=== PATIENT | male | born 1975 | race African-American/Black ===

== ENCOUNTER 2020-07-04 11:48 | Outpatient (REF) | payer MEDICAID, SELFPAY ==
--- NOTE | 2020-07-04 11:57 | XR_ITS ---
EXAMINATION: CERVICAL SPINE X-RAY CLINICAL INFORMATION: Pain COMPARISON: None TECHNIQUE: 5 views of the cervical spine FINDINGS: There is mild curvature of the lower cervical and upper thoracic spine to the left. Bone alignment is otherwise normal. No fracture or dislocation is seen. Disc spaces are normal. There is minimal degenerative spondylosis at C4-C5 and C5-C6. Bilateral neural foramen are patent. Prevertebral soft tissues are normal. XR/XR lumbar spine 4V min IMPRESSION: Mild curvature of the lower cervical and upper thoracic spine to the left. Mild degenerative spondylosis at C4-C5 and C5-C6. EXAMINATION: Thoracic spine x-ray CLINICAL INFORMATION: Pain COMPARISON: None. TECHNIQUE: 2 views of the thoracic spine FINDINGS: There is mild curvature of the midthoracic spine to the right with apex at T5 and lower thoracic spine to the left with apex at T9. Bone alignment is otherwise normal. No fracture or dislocation is seen. Disc spaces are normal. Paraspinal soft tissues are normal. IMPRESSION: Mild scoliosis. EXAMINATION: Lumbar spine x-ray CLINICAL INFORMATION: Pain COMPARISON: None. TECHNIQUE: 3 views of the lumbar spine FINDINGS: There is mild curvature of the proximal lumbar spine to the right with apex at T12-L1. Bone alignment is otherwise normal. No fracture or dislocation is seen. Disc spaces are normal. IMPRESSION: Mild scoliosis.
--- NOTE | 2020-07-04 11:57 | XR_ITS ---
EXAMINATION: CERVICAL SPINE X-RAY CLINICAL INFORMATION: Pain COMPARISON: None TECHNIQUE: 5 views of the cervical spine FINDINGS: There is mild curvature of the lower cervical and upper thoracic spine to the left. Bone alignment is otherwise normal. No fracture or dislocation is seen. Disc spaces are normal. There is minimal degenerative spondylosis at C4-C5 and C5-C6. Bilateral neural foramen are patent. Prevertebral soft tissues are normal. XR/XR cervical spine 4V IMPRESSION: Mild curvature of the lower cervical and upper thoracic spine to the left. Mild degenerative spondylosis at C4-C5 and C5-C6. EXAMINATION: Thoracic spine x-ray CLINICAL INFORMATION: Pain COMPARISON: None. TECHNIQUE: 2 views of the thoracic spine FINDINGS: There is mild curvature of the midthoracic spine to the right with apex at T5 and lower thoracic spine to the left with apex at T9. Bone alignment is otherwise normal. No fracture or dislocation is seen. Disc spaces are normal. Paraspinal soft tissues are normal. IMPRESSION: Mild scoliosis. EXAMINATION: Lumbar spine x-ray CLINICAL INFORMATION: Pain COMPARISON: None. TECHNIQUE: 3 views of the lumbar spine FINDINGS: There is mild curvature of the proximal lumbar spine to the right with apex at T12-L1. Bone alignment is otherwise normal. No fracture or dislocation is seen. Disc spaces are normal. IMPRESSION: Mild scoliosis.
--- NOTE | 2020-07-04 11:58 | XR_ITS ---
EXAMINATION: BILATERAL SHOULDER X-RAY CLINICAL INFORMATION: Pain COMPARISON: None TECHNIQUE: 4 views each shoulder FINDINGS: Bone alignment is normal. No fracture or dislocation is seen. The joint spaces are normal. Soft tissues are normal. XR/XR shoulder LT min 2V IMPRESSION: Normal exam.
--- NOTE | 2020-07-04 12:00 | XR_ITS ---
EXAMINATION: BILATERAL SHOULDER X-RAY CLINICAL INFORMATION: Pain COMPARISON: None TECHNIQUE: 4 views each shoulder FINDINGS: Bone alignment is normal. No fracture or dislocation is seen. The joint spaces are normal. Soft tissues are normal. XR/XR shoulder RT min 2V IMPRESSION: Normal exam.
--- NOTE | 2020-07-04 12:01 | XR_ITS ---
EXAMINATION: CERVICAL SPINE X-RAY CLINICAL INFORMATION: Pain COMPARISON: None TECHNIQUE: 5 views of the cervical spine FINDINGS: There is mild curvature of the lower cervical and upper thoracic spine to the left. Bone alignment is otherwise normal. No fracture or dislocation is seen. Disc spaces are normal. There is minimal degenerative spondylosis at C4-C5 and C5-C6. Bilateral neural foramen are patent. Prevertebral soft tissues are normal. XR/XR thoracic spine 2V IMPRESSION: Mild curvature of the lower cervical and upper thoracic spine to the left. Mild degenerative spondylosis at C4-C5 and C5-C6. EXAMINATION: Thoracic spine x-ray CLINICAL INFORMATION: Pain COMPARISON: None. TECHNIQUE: 2 views of the thoracic spine FINDINGS: There is mild curvature of the midthoracic spine to the right with apex at T5 and lower thoracic spine to the left with apex at T9. Bone alignment is otherwise normal. No fracture or dislocation is seen. Disc spaces are normal. Paraspinal soft tissues are normal. IMPRESSION: Mild scoliosis. EXAMINATION: Lumbar spine x-ray CLINICAL INFORMATION: Pain COMPARISON: None. TECHNIQUE: 3 views of the lumbar spine FINDINGS: There is mild curvature of the proximal lumbar spine to the right with apex at T12-L1. Bone alignment is otherwise normal. No fracture or dislocation is seen. Disc spaces are normal. IMPRESSION: Mild scoliosis.
== END 2020-07-04 11:49 | disposition home or self-care (01) ==
LOC: HO.XRAY 11:48
PROVIDERS: PCP Registered Nurse; Visit Provider Registered Nurse
DX: G89.29 Other chronic pain (principal); M54.6 Pain in thoracic spine
CPT/HCPCS: 72050; 72070; 72110; 73030

== ENCOUNTER 2021-05-19 13:54 | Outpatient (REF) | payer MEDICAID, SELFPAY | END 2021-05-19 13:55 | disposition home or self-care (01) | LOC: HO.HAP 13:54 | PROVIDERS: Visit Provider Registered Nurse | DX: Z46.1 Encounter for fitting and adjustment of hearing aid (principal); H90.3 Sensorineural hearing loss, bilateral | CPT/HCPCS: V5264 ==

== ENCOUNTER 2021-05-19 15:13 | Outpatient (REF) | payer SELFPAY | END 2021-05-19 15:14 | disposition home or self-care (01) | LOC: HO.HAP 15:13 | PROVIDERS: Visit Provider Registered Nurse | DX: Z46.1 Encounter for fitting and adjustment of hearing aid (principal); H90.3 Sensorineural hearing loss, bilateral | CPT/HCPCS: V5267 ==

== ENCOUNTER 2021-07-10 13:11 | Outpatient (REF) | payer MEDICAID, SELFPAY ==
--- NOTE | ~2021-07-10 | MR_ITS ---
EXAMINATION: MR THORACIC SPINE WITHOUT AND WITH CONTRAST CLINICAL INFORMATION: Chronic mid to lower back pain. COMPARISON: Thoracic spine radiographs 07/04/2020. TECHNIQUE: Multiplanar MR imaging of the thoracic spine was performed without and with contrast. A total of 6 mL Gadavist was utilized for this examination. FINDINGS: Alignment is normal. Vertebral heights are preserved. No acute bone marrow signal changes. Intervertebral disc height and signal intensity is maintained at all levels. Annular contours are normal and there is no canal or neuroforaminal compromise. No cord compression or abnormal intramedullary signal changes. Postcontrast images reveal no abnormal intradural enhancement. Limited visualization of the intrathoracic anatomy reveals no abnormal finding. Specifically there is no paraspinal soft tissue mass or collection. MR/MR thoracic spine wo/w con IMPRESSION: Normal thoracic spine MRI.
--- NOTE | ~2021-07-10 | MR_ITS ---
MR LUMBAR SPINE WITHOUT AND WITH IV CONTRAST CLINICAL INFORMATION: 1 week of fever and bodyaches with chronic lower back and mid back pain. COMPARISON: Lumbar spine radiographs 07/04/2020. TECHNIQUE: MRI of the lumbar spine was obtained using routine sequences with and without contrast. Intravenous contrast: Gadavist 6 mL. FINDINGS: There are 5 nonrib-bearing lumbar-type vertebral bodies. Vertebral body heights are maintained. Disc volumes are preserved. The discs remain well-hydrated. T2 signal changes and enhancement along the anterior upper corners of the L4 and L5 endplates, most likely degenerative/inflammatory. No additional bone marrow edema and no additional intraosseous enhancement. No pathologic enhancement along the cauda equina nerve roots. Conus terminates at the T12-L1 level. No significant extraspinal soft tissue findings. L1-L2: Disc contour is normal. No central canal stenosis and no foraminal stenosis. L2-L3: Slight annular disc bulge and mild bilateral facet arthropathy. No central canal stenosis and no foraminal stenosis. L3-L4: Small annular disc bulge and mild bilateral facet arthropathy. No central canal stenosis and no foraminal stenosis. L4-L5: Small annular disc bulge and moderate bilateral facet arthropathy. No central canal stenosis and no foraminal stenosis. L5-S1: Small annular disc bulge and mild bilateral facet arthropathy. No central canal stenosis and no foraminal stenosis. MR/MR lumbar spine wo/w con IMPRESSION: Mild lumbar spondylosis. No severe central canal stenosis and no severe foraminal stenosis within the lumbar spine. Mild T2 signal changes and enhancement along the anterior upper corners of the L4 and L5 endplates, most likely degenerative/inflammatory.
[2021-07-10 13:06] LABS: Anion Gap 11 (12-20); Blood Urea Nitrogen 6 mg/dL (9-16); Calcium 8.7 mg/dL (8.4-10.2); Carbon Dioxide 23 mmol/L (22-29); Chloride 109 mmol/L (96-108); Estimated Glomerular Filt Rate > 60; Glucose Random 88 mg/dL (60-115); Sodium 139 mmol/L (135-145)
== END 2021-07-10 13:12 | disposition home or self-care (01) ==
LOC: HO.MRI 13:11
PROVIDERS: Registered Nurse; Visit Provider Nurse Practitioner Family
DX: B20 Human immunodeficiency virus [HIV] disease (principal); M54.9 Dorsalgia, unspecified; R05.9 Cough, unspecified; D72.810 Lymphocytopenia
CPT/HCPCS: 36415; 72157; 72158; 80048; A9585

== ENCOUNTER 2022-01-16 12:47 | Outpatient (REF) | payer MEDICAID, SELFPAY | END 2022-01-16 12:48 | disposition home or self-care (01) | LOC: HO.HAP 12:47 | PROVIDERS: Visit Provider Registered Nurse | DX: Z46.1 Encounter for fitting and adjustment of hearing aid (principal); H90.3 Sensorineural hearing loss, bilateral | CPT/HCPCS: 92592 ==

== ENCOUNTER 2022-02-02 10:56 | Outpatient (REF) | payer MEDICAID, SELFPAY | END 2022-02-02 10:57 | disposition home or self-care (01) | LOC: HO.HAP 10:56 | PROVIDERS: Visit Provider Registered Nurse | DX: Z46.1 Encounter for fitting and adjustment of hearing aid (principal); H90.3 Sensorineural hearing loss, bilateral | CPT/HCPCS: V5264 ==

== ENCOUNTER 2023-04-17 11:46 | Outpatient (REF) | payer MEDICAID, SELFPAY | END 2023-04-17 11:47 | disposition home or self-care (01) | LOC: HO.HAP 11:46 | PROVIDERS: Visit Provider Registered Nurse | DX: Z46.1 Encounter for fitting and adjustment of hearing aid (principal); H90.3 Sensorineural hearing loss, bilateral | CPT/HCPCS: V5266 ==

== ENCOUNTER 2023-09-27 10:49 | Outpatient (REF) | payer MEDICAID, SELFPAY ==
--- NOTE | 2023-09-27 12:39 | MHC.AU.HA1 ---
Hearing Aid Evaluation Date of Visit: 09/27/23 Aircraft Captain Used: Urdu- In Person Historical Information: Description of Hearing: Moderate to profound sensorineural hearing loss, bilaterally Current personal amplification information: Phonak Audeo [id number] fit in Apr 2018 Summary: Se provided an updated hearing test and medical clearance from [facility]. Se reported that he has had an ongoing right-sided ear infection since April 2023. He was provided multiple rounds of medications; however, the infection reportedly continues to return. Because of this, about two weeks ago, he was evaluated at the [facility]. They reportedly recommended an MRI and Se is still waiting for the MRI to be scheduled. Due to the infection, Se had not been wearing his right hearing aid properly and subsequently lost it. Impressions taken, bilaterally, without incident. Se opted to stay with RITE style hearing aids and was excited for bluetooth capabilities and rechargeability. Hearing Aid Prescription: Based on the individual?s shared listening needs, communication environments, dexterity, desire for connectivity, and personal preferences, the following prescription for amplification has been made: Right ear: Make, Model, Color: Phonak Audeo 70-R Color: Graphite Almaguer Battery Size: Rechargeable Boat Oar Maker/Slim Tube: 0UP Type of Earmold/Dome/CShell/SlimTip: c-shell Left ear: Left ear prescription to be same as Right Hearing Aid above: Make, Model, Color: Phonak Audeo 70-R Color: Graphite Almaguer Battery Size: Rechargeable Boat Oar Maker/Slim Tube: 1UP Type of Earmold/Dome/CShell/SlimTip: c-shell Accessories/Assistive Technology: Egg Sorter Plan of Care: Patient wishes to purchase hearing aids as prescribed Action Taken/Action Needed: Hearing Instrument Fitting to be scheduled when materials arrive Primary Diagnosis: H90.3 Bilateral Sensorineural Hearing Loss Signature: Provider: Ulises Montague, [facility]
== END 2023-09-27 10:50 | disposition home or self-care (01) ==
LOC: HO.HAP 10:49
PROVIDERS: Visit Provider Registered Nurse
DX: Z46.1 Encounter for fitting and adjustment of hearing aid (principal); H90.3 Sensorineural hearing loss, bilateral
CPT/HCPCS: 92591; V5275

== ENCOUNTER 2023-10-04 14:46 | Outpatient (REF) | payer MEDICAID, SELFPAY ==
[2023-10-04 17:23] LABS: MANUAL DIFF FLAG NO
[2023-10-04 17:29] LABS: Basophils Percent Auto 0.2 % (0-2); Eosinophils Absolute Auto 0.1 X10*3/uL (0.0-0.4); Eosinophils Percent Auto 0.6 % (0-4); Hematocrit 51.2 % (42.0-52.0); Hemoglobin 17.8 g/dl (14.0-18.0); Imm Gran Abs Auto 0.03 X10*3/uL (0.00-0.03); Imm Gran Pct Auto 0.4 % (0.0-0.4); Lymphocytes Absolute Auto 1.6 X10*3/uL (1.2-4.9); Lymphocytes Percent Auto 19.9 % (20-40); Mean Corpuscular HGB Conc 34.8 g/dl (31.0-36.0); Mean Corpuscular Hemoglobin 34.4 pg (27.0-33.0); Mean Corpuscular Volume 98.8 fL (80.0-98.0); Mean Platelet Volume 10.1 fL (9.4-12.4); Monocytes Absolute Auto 0.8 X10*3/uL (0.1-1.2); Monocytes Percent Auto 9.9 % (2-11); Neutrophils Absolute Auto 5.6 x10*3/uL (2.0-8.3); Platelet Count 203 X10*3/uL (160-400); Red Blood Count 5.18 X10*6/uL (4.60-5.80); Red Cell Distribution Width 13.2 % (11.0-16.0); White Blood Count 8.1 X10*3/uL (4.8-10.8)
[2023-10-04 17:49] LABS: Alanine Aminotransferase 36 U/L (0-40); Albumin Level 4.4 g/dL (3.5-5.0); Alkaline Phosphatase 73 U/L (39-117); Anion Gap 12 (12-20); Aspartate Amino Transferase 29 U/L (5-37); Bilirubin Total 0.5 mg/dL (0.0-1.0); Blood Urea Nitrogen 9 mg/dL (9-16); Calcium 9.5 mg/dL (8.4-10.2); Carbon Dioxide 25 mmol/L (22-29); Chloride 106 mmol/L (96-108); Cholesterol 271 mg/dL (<200); Estimated Glomerular Filt Rate > 60; Glucose Random 89 mg/dL (60-115); HDL Cholesterol 38 mg/dL (>40); LDL Cholesterol Calculated 199 mg/dL (<100); Potassium 4.2 mmol/L (3.3-5.1); Sodium 139 mmol/L (135-145); Total Protein 6.8 g/dL (6.5-8.0); Triglycerides 174 mg/dL (<150)
[2023-10-04 19:02] LABS: Reflex LDLD? No
[2023-10-05 03:42] LABS: Syphilis Screen Reactive (Nonreactive)
[2023-10-05 03:47] LABS: CT PCR NOT DETECTED (Not Detect.); NG PCR NOT DETECTED (Not Detect.)
[2023-10-05 14:24] LABS: HIV RNA PCR Qn Copies 29 copies/mL (NOT DETECTED); HIV RNA PCR Qn Log Copies 1.46 (NOT DETECTED)
[2023-10-07 10:09] LABS: Absolute CD3 Count 1271 cells/uL (840-3060); Absolute CD4 Count 667 cells/uL (490-1740); Absolute CD8 Count 581 cells/uL (180-1170); Absolute Lymphocytes 1696 cells/uL (850-3900); CD4 CD8 Ratio 1.15 (0.86-5.00); Percent CD3 Cells 75 % (57-85); Percent CD4 Cells 39 % (30-61); Percent CD8 Cells 34 % (12-42)
[2023-10-10 05:44] LABS: Testosterone-Albumin 4.5 g/dL (3.6-5.1); Testosterone-Bioavailable 146.7 ng/dL (110.0-575.0); Testosterone-Free 71.3 pg/mL (46.0-224.0); Testosterone-SHBG 42 nmol/L (10-50); Testosterone-Total 627 ng/dL (250-1100)
[2023-10-13 11:12] LABS: RPR Quantitative Non-Reactive (Nonreactive); T.Pallidum Particle Agg Test Reactive (Nonreactive)
== END 2023-10-04 14:47 | disposition home or self-care (01) ==
LOC: HO.CHCLDS 14:46
PROVIDERS: Referring Provider Student in an Organized Health Care Education/Training Program; Visit Provider Registered Nurse
DX: N52.9 Male erectile dysfunction, unspecified (principal); B20 Human immunodeficiency virus [HIV] disease
CPT/HCPCS: 0353U; 36415; 80053; 80061; 84403; 85025; 86359; 86360; 86592; 86780; 87536

== ENCOUNTER 2023-10-22 13:22 | Outpatient (REF) | payer MEDICAID, SELFPAY | END 2023-10-22 13:23 | disposition home or self-care (01) | LOC: HO.HAP 13:22 | PROVIDERS: Visit Provider Otolaryngology | DX: Z46.1 Encounter for fitting and adjustment of hearing aid (principal); H90.3 Sensorineural hearing loss, bilateral | CPT/HCPCS: V5011; V5020; V5160; V5261; V5264 ==

== ENCOUNTER 2023-11-05 11:49 | Outpatient (REF) | payer MEDICAID, SELFPAY | END 2023-11-05 11:50 | disposition home or self-care (01) | LOC: HO.HAP 11:49 | PROVIDERS: Visit Provider Registered Nurse | DX: Z13.89 Encounter for screening for other disorder (principal) ==

== ENCOUNTER 2023-12-18 10:43 | Outpatient (REF) | payer MEDICAID, SELFPAY ==
[2023-12-18 14:25] LABS: Cholesterol 248 mg/dL (<200); HDL Cholesterol 36 mg/dL (>40); LDL Cholesterol Calculated 171 mg/dL (<100); Triglycerides 206 mg/dL (<150)
== END 2023-12-18 10:44 | disposition home or self-care (01) ==
LOC: HO.HHCL 10:43
PROVIDERS: Visit Provider Registered Nurse
DX: E78.2 Mixed hyperlipidemia (principal)
CPT/HCPCS: 36415; 80061

== ENCOUNTER 2023-12-30 11:49 | Outpatient (REF) | payer MEDICAID, SELFPAY ==
[2023-12-30 13:02] LABS: MANUAL DIFF FLAG NO
[2023-12-30 13:42] LABS: Basophils Percent Auto 0.2 % (0-2); Eosinophils Absolute Auto 0.1 X10*3/uL (0.0-0.4); Eosinophils Percent Auto 1.3 % (0-4); Hematocrit 51.5 % (42.0-52.0); Hemoglobin 17.9 g/dl (14.0-18.0); Imm Gran Abs Auto 0.03 X10*3/uL (0.00-0.03); Imm Gran Pct Auto 0.3 % (0.0-0.4); Lymphocytes Absolute Auto 1.9 X10*3/uL (1.2-4.9); Lymphocytes Percent Auto 22.4 % (20-40); Mean Corpuscular HGB Conc 34.8 g/dl (31.0-36.0); Mean Corpuscular Hemoglobin 34.5 pg (27.0-33.0); Mean Corpuscular Volume 99.2 fL (80.0-98.0); Mean Platelet Volume 9.8 fL (9.4-12.4); Monocytes Absolute Auto 0.8 X10*3/uL (0.1-1.2); Monocytes Percent Auto 9.7 % (2-11); Neutrophils Absolute Auto 5.7 x10*3/uL (2.0-8.3); Neutrophils Percent Auto 66.1 % (45-73); Platelet Count 199 X10*3/uL (160-400); Red Blood Count 5.19 X10*6/uL (4.60-5.80); White Blood Count 8.6 X10*3/uL (4.8-10.8)
[2023-12-30 14:02] LABS: Estimated Average Glucose 103 mg/dL; Hemoglobin A1c % 5.2 % (<6.0)
[2023-12-30 14:07] LABS: Alanine Aminotransferase 31 U/L (0-40); Albumin Level 4.3 g/dL (3.5-5.0); Alkaline Phosphatase 67 U/L (39-117); Anion Gap 14 (12-20); Aspartate Amino Transferase 19 U/L (5-37); Bilirubin Total 0.5 mg/dL (0.0-1.0); Blood Urea Nitrogen 8 mg/dL (9-16); Calcium 9.7 mg/dL (8.4-10.2); Carbon Dioxide 24 mmol/L (22-29); Chloride 108 mmol/L (96-108); Estimated Glomerular Filt Rate > 60; Glucose Random 96 mg/dL (60-115); Potassium 4.5 mmol/L (3.3-5.1); Sodium 141 mmol/L (135-145); Total Protein 6.9 g/dL (6.5-8.0)
[2023-12-30 14:22] LABS: Folate 3.2 ng/mL (> or = 4.0); Vitamin B12 844 pg/mL (200-900)
[2023-12-31 04:29] LABS: HBS Num1 0.41 mIU/mL (0-7.99); HBc Num1 0.08 S/CO (0.00-0.79); HBsAGNum1 0.45 S/CO (0.00-0.99); Hepatitis B Core Antibody Nonreactive (Nonreactive); Hepatitis B Surface Antigen Negative (Negative); ~HepC Num1 0.05 S/CO (0.00-0.79); ~Hepatitis B Surface Antibody NONREACTIVE (Nonreactive); ~Hepatitis C Antibody Nonreactive (Nonreactive)
[2023-12-31 11:14] LABS: Absolute CD3 Count 1427 cells/uL (840-3060); Absolute CD4 Count 768 cells/uL (490-1740); Absolute CD8 Count 615 cells/uL (180-1170); Absolute Lymphocytes 1892 cells/uL (850-3900); CD4 CD8 Ratio 1.25 (0.86-5.00); Percent CD3 Cells 75 % (57-85); Percent CD4 Cells 41 % (30-61); Percent CD8 Cells 33 % (12-42)
[2024-01-01 12:23] LABS: HIV RNA PCR Qn Copies <20 DETECTED copies/mL (NOT DETECTED); HIV RNA PCR Qn Log Copies <1.30 DETECTED (NOT DETECTED)
[2024-01-02 03:58] LABS: TS Negative Control Passed; TS Panel A 0; TS Panel B 0; TS Positive Control Passed; TSpotTB Negative (Negative)
== END 2023-12-30 11:50 | disposition home or self-care (01) ==
LOC: HO.HHCL 11:49
PROVIDERS: Visit Provider Student in an Organized Health Care Education/Training Program
DX: B20 Human immunodeficiency virus [HIV] disease (principal)
CPT/HCPCS: 36415; 80053; 82607; 82746; 83036; 85025; 86359; 86360; 86481; 86704; 86706; 86735; 86762; 86765; 86803; 87340; 87536; 88112

== ENCOUNTER 2024-05-14 13:45 | Outpatient (REF) | payer MEDICAID, SELFPAY | END 2024-05-14 13:46 | disposition home or self-care (01) | LOC: HO.HAP 13:45 | PROVIDERS: Visit Provider Registered Nurse | DX: Z13.89 Encounter for screening for other disorder (principal) ==

== ENCOUNTER 2024-06-04 10:43 | Outpatient (REF) | payer MEDICAID, SELFPAY | END 2024-06-04 10:44 | disposition home or self-care (01) | LOC: HO.HAP 10:43 | PROVIDERS: Visit Provider Registered Nurse | DX: Z46.1 Encounter for fitting and adjustment of hearing aid (principal); H90.3 Sensorineural hearing loss, bilateral | CPT/HCPCS: V5264 ==

== ENCOUNTER 2024-07-09 11:30 | Outpatient (REF) | payer MEDICAID, SELFPAY ==
[2024-07-09 13:24] LABS: MANUAL DIFF FLAG NO
[2024-07-09 13:41] LABS: Basophils Percent Auto 0.3 % (0-2); Eosinophils Absolute Auto 0.1 X10*3/uL (0.0-0.4); Eosinophils Percent Auto 1.2 % (0-4); Hematocrit 51.8 % (42.0-52.0); Hemoglobin 18.3 g/dl (14.0-18.0); Imm Gran Abs Auto 0.02 X10*3/uL (0.00-0.03); Imm Gran Pct Auto 0.3 % (0.0-0.4); Lymphocytes Absolute Auto 1.6 X10*3/uL (1.2-4.9); Lymphocytes Percent Auto 20.9 % (20-40); Mean Corpuscular HGB Conc 35.3 g/dl (31.0-36.0); Mean Corpuscular Hemoglobin 34.5 pg (27.0-33.0); Mean Corpuscular Volume 97.7 fL (80.0-98.0); Mean Platelet Volume 10.2 fL (9.4-12.4); Monocytes Percent Auto 13.3 % (2-11); Neutrophils Absolute Auto 4.9 x10*3/uL (2.0-8.3); Platelet Count 211 X10*3/uL (160-400); Red Cell Distribution Width 13.3 % (11.0-16.0); White Blood Count 7.6 X10*3/uL (4.8-10.8)
[2024-07-09 14:35] LABS: Folate 4.1 ng/mL (> or = 4.0)
[2024-07-09 16:00] LABS: Alanine Aminotransferase 46 U/L (0-40); Albumin Level 4.4 g/dL (3.5-5.0); Alkaline Phosphatase 70 U/L (39-117); Anion Gap 10 (12-20); Aspartate Amino Transferase 27 U/L (5-37); Bilirubin Total 0.6 mg/dL (0.0-1.0); Blood Urea Nitrogen 8 mg/dL (9-16); Calcium 9.1 mg/dL (8.4-10.2); Carbon Dioxide 24 mmol/L (22-29); Chloride 109 mmol/L (96-108); Estimated Glomerular Filt Rate > 60; Glucose Random 66 mg/dL (60-115); Potassium 3.9 mmol/L (3.3-5.1); Sodium 139 mmol/L (135-145); Total Protein 6.8 g/dL (6.5-8.0)
[2024-07-11 07:33] LABS: HIV RNA PCR Qn Copies NOT DETECTED copies/mL (NOT DETECTED); HIV RNA PCR Qn Log Copies NOT DETECTED (NOT DETECTED)
[2024-07-13 21:25] LABS: Absolute CD3 Count 1259 cells/uL (840-3060); Absolute CD4 Count 667 cells/uL (490-1740); Absolute CD8 Count 567 cells/uL (180-1170); Absolute Lymphocytes 1623 cells/uL (850-3900); CD4 CD8 Ratio 1.18 (0.86-5.00); Percent CD3 Cells 78 % (57-85); Percent CD4 Cells 41 % (30-61); Percent CD8 Cells 35 % (12-42)
== END 2024-07-09 11:31 | disposition home or self-care (01) ==
LOC: HO.HHCL 11:30
PROVIDERS: Visit Provider Student in an Organized Health Care Education/Training Program
DX: Z21 Asymptomatic human immunodeficiency virus [HIV] infection status (principal)
CPT/HCPCS: 36415; 80053; 82746; 85025; 86359; 86360; 87536

== ENCOUNTER 2024-07-20 12:08 | Outpatient (REF) | payer MEDICAID, SELFPAY ==
--- NOTE | ~2024-07-20 | XR_ITS ---
EXAMINATION: XR FOOT, RIGHT CLINICAL INFORMATION: ongoing pain in his right heel for last month to r.o spur COMPARISON: None available. TECHNIQUE: AP, lateral, and oblique views of the right foot. FINDINGS: The bones and soft tissues are normal. No fracture. Alignment is anatomic. Joint spaces are maintained. XR/XR foot RT min 3V IMPRESSION: Normal right foot. Electronically signed by: Candido Garcia MD 07/20/2024 04:27 PM J[facility] THOMPSON
== END 2024-07-20 12:09 | disposition home or self-care (01) ==
LOC: HO.HHCX 12:08
PROVIDERS: Visit Provider Student in an Organized Health Care Education/Training Program
DX: M79.671 Pain in right foot (principal); G89.29 Other chronic pain
CPT/HCPCS: 73630